=== PATIENT | female | born 1975 | race Two or more races ===

== ENCOUNTER 2022-04-26 09:32 | Outpatient (REF) | payer MEDICAID, SELFPAY ==
--- NOTE | 2022-04-26 09:36 | EMG_ITS ---
Right median and ulnar motor and sensory studies were performed, right radial sensory study was performed, and paraspinal muscles were tested. IMPRESSION: Mild to moderate right median neuropathy across carpal tunnel. MD EZRA Sears/V[facility] / [id number]
== END 2022-04-26 09:33 | disposition home or self-care (01) ==
LOC: HO.NEURO 09:32
PROVIDERS: Visit Provider Internal Medicine
DX: G56.01 Carpal tunnel syndrome, right upper limb (principal)
CPT/HCPCS: 95886; 95909